=== PATIENT | female | born 1940 | race Native Hawaiian/Other Pacific Islander ===

== ENCOUNTER 2018-09-27 08:45 | Inpatient (IN) | payer OTHER ==
[~2018-09-27] VITALS: Ht 157.5 cm; Wt 47.7 kg
[2018-09-27] VITALS (16 sets, daily range): BP systolic 100–138; BP diastolic 40–96; TEMP 97.8–98.7; Ht 157.5 cm; Wt 47.7 kg
[~2018-09-27 08:45] MED LIST: AMBIEN5 MG PO; AMITRIPTYLINE H50 MG PO; AMLODIPINE BESYLATE PO; BUPRENORPHINE 5 MCG/HR TD; BUSPIRONE7.5 MG PO; CRESTOR20 MG PO; DOCU100C10 PO; DULOXETINE HYDR60 MG PO; ESTR0.6211 PO; FURO20TA67 PO; GABA300C2 PO; KLOR-CON M1010 MEQ PO; NUCYNTA50 MG PO; OMEPRAZOLE DR40 MG PO; ONDANSETRON4 M2 PO
[2018-09-27] MEDS ORDERED: LIPITOR20 MG PO (12:51)
[2018-09-27] MEDS ORDERED: BENZONATATE100 MG PO (12:54)
[2018-09-27] MEDS ORDERED: BENZONATATE200 MG PO (12:56)
[2018-09-27] MEDS ORDERED: TRAZODONE HYDR100 MG PO (12:58)
[2018-09-27] MEDS ORDERED: TYLENOL325 MG PO (13:01)
[2018-09-27] MEDS ORDERED: PANTOPRAZOLE 40MG TA PO (13:03)
[2018-09-27] MEDS ORDERED: NUCYNTA50 MG PO (13:08)
[2018-09-27] MEDS ORDERED: MUCUS RELIEF600 MG PO (14:04)
[2018-09-27] MEDS ORDERED: LEVOFLOXACIN500 MG PO (14:06)
[2018-09-27] MEDS ORDERED: MAGNSUS68 PO (14:08)
[2018-09-27] MEDS ORDERED: ESCITALOPRAM10 MG PO (14:11)
[2018-09-27] MEDS ORDERED: DULOXETINE HCL60 MG PO (14:16)
[2018-09-27] MEDS ORDERED: ERGOCALCIF50000 UNIT PO (14:18)
[2018-09-28] VITALS (16 sets, daily range): BP systolic 102–153; BP diastolic 46–68; TEMP 97.7–98.5
[2018-09-28 06:30] LABS: PLATELET COUNT 427 K/uL (152-353)
[2018-09-28 06:42] LABS: POTASSIUM 3.1 mmol/L (3.6-5.2)
== END 2018-09-28 18:50 | disposition other institution (70) | DRG 189 ==
LOC: ICU 08:45
PROVIDERS: Family Medicine; ADMIT Internal Medicine
PROC: 30233N1 Transfusion of Nonautologous Red Blood Cells into Peripheral Vein, Percutaneous Approach (ICD-10-PCS; principal; 2018-09-27)
DX: J96.01 Acute respiratory failure with hypoxia (principal); A41.89 Other specified sepsis; J15.8 Pneumonia due to other specified bacteria; R45.851 Suicidal ideations; F11.20 Opioid dependence, uncomplicated; D72.828 Other elevated white blood cell count; F32.89 Other specified depressive episodes; R09.02 Hypoxemia; D64.89 Other specified anemias; R50.9 Fever, unspecified
CPT/HCPCS: 80053; 83605; 85014; 85018; 85027; 86850; 86900; 86901; 86922; 87040; 87070; 87205; 94640; 94664; 94760; J0456; J0696; J1940; J2930; P9016